=== PATIENT | female | born 1985 | race Caucasian/White ===

== ENCOUNTER → 2017-04-02 | Outpatient (CLI) | payer OTHER ==
--- NOTE | 2017-04-04 13:17 | US ---
EXAM DESCRIPTION: Breast,Bilateral: Ultrasound CLINICAL HISTORY: 31 yearsFemaleFAMILY HISTORY. Mother with breast cancer. Bilateral palpable lumps. COMPARISON: None. TECHNIQUE: Transcutaneous scanning of the bilateral breasts utilizing two-dimensional and Doppler modes. Bilateral 4 quadrant scanning technique. Scanning performed by the hvac residential service technician and Dr. Maravilla. FINDINGS: At the 300 clock position of the right breast 1 cm from the nipple, a hypoechoic nodule is present measuring approximately 5.4 x 3.9 mm. Well-defined villasenor with predominantly posterior acoustic enhancement. Surrounded by fibroglandular tissues. Parallel orientation. No overlying skin abnormality or calcifications. Not vascular. At the 1100 clock position of the right breast, 3 cm from the nipple, is a oval-shaped hypoechoic lesion with lobulated borders. Surrounded by fibroglandular tissues. Minimal posterior acoustic enhancement, non-vascular. Parallel orientation, 7.1 x 5.2 mm. At the 1230 clock position of the right breast 4 cm from the nipple is a oval-shaped hypoechoic mass with central echogenicity. Well-defined villasenor, 6.8 x 4.7 mm. Parallel orientation with no definitive posterior acoustic features. Nonvascular. In the left breast at 1200 clock position retroareolar location, is a hypoechoic mass just anterior to the muscle layer. Parallel orientation with no definitive posterior acoustic features. Nonvascular, dimensions 8.2 x 3.4 mm. Minimal central echogenicity, surrounded by fibroglandular tissues. At the 600 clock position of the left breast 3 cm from the nipple and near the muscular layer, is a 7.3 mm hypoechoic mass with central echogenicity. Relatively well-defined villasenor. Parallel orientation with no definitive posterior acoustic features. Not vascular. Surrounded by fibroglandular tissues. In the left breast at the 800 clock position, 2 cm from the nipple is a hypoechoic mass with smooth villasenor and minimal echogenicity. 7.0 x 7.3 mm dimensions, parallel orientation, and posterior acoustic enhancement. Near the chest wall and surrounded by fibroglandular tissues, nonvascular. In the left breast at the 900 clock position 3 cm from the nipple is a mostly hypoechoic mass with relatively well-defined villasenor measuring 8.8 x 5.3 mm. Predominantly posterior acoustic enhancement and parallel orientation. Comminuted the chest wall and surrounded by fibroglandular tissues. In the left breast at the 600 clock position 2 cm from the nipple is a mostly hypoechoic mass with relatively well-defined villasenor. Parallel orientation, posterior acoustic enhancement, and surrounded by fibroglandular tissues, abutting the chest wall. Not vascular, 6.5 mm long axis. IMPRESSION: BI-RADS CATEGORY: 0 - INCOMPLETE- Need additional imaging evaluation. FOLLOW-UP: Recall for additional imaging: Bilateral 3-D tomosynthesis diagnostic mammographic imaging.. The FINDINGS and the follow-up plan were reviewed in person with the patient after the examination. Written communication explaining the IMPRESSION and follow-up will be mailed to the patient and referring care provider. Electronically signed by: Forrest Maravilla MD 04/04/2017 1:16 PM BLOCKING MACHINE TENDER
== END ==
LOC: US 15:32
PROVIDERS: ATTEND Obstetrics & Gynecology
DX: N63.10 Unspecified lump in the right breast, unspecified quadrant (principal); N63.20 Unspecified lump in the left breast, unspecified quadrant; Z80.3 Family history of malignant neoplasm of breast

== ENCOUNTER → 2017-04-11 | Outpatient (CLI) | payer OTHER ==
--- NOTE | 2017-04-11 16:20 | MAM ---
EXAM DESCRIPTION: 3D Diagnostic, Bilateral: Digital Mammography CLINICAL HISTORY: 31 [id number] mother with breast cancer. Bilateral palpable lumps. Bilateral nodules on ultrasound breast examination. COMPARISON: Bilateral screening breast ultrasound examination 04/02/2017. Bilateral 2-D digital diagnostic mammographic examination 04/19/2015. TECHNIQUE: Bilateral CC LM MLO projection full-field images, 3-D tomosynthesis digital mammographic technique. Also bilateral synthesized CC MLO LM full-field images. CAD not utilized. FINDINGS: The breast parenchymal density pattern is: Extremely dense breast tissue, which lowers the sensitivity of mammography. No skin thickening or nipple retraction small focal calcification in the right axilla. Scattered solitary microcalcifications at the 900 clock position of the left breast. No focal, stellate mass or density, focal asymmetry , and no suspicious microcalcifications bilaterally. Stable mammograms compared to prior study, taking into account differences in mammographic technique IMPRESSION: BI-RADS CATEGORY: 3 - PROBABLY BENIGN. Management: Short interval (6-month) follow-up diagnostic mammography and continued six-month surveillance, bilateral targeted breast ultrasound. The FINDINGS and the follow-up plan were reviewed in person with the patient after the examination. Written communication explaining the IMPRESSION and follow-up will be mailed to the patient and referring care provider. Electronically signed by: Forrest Maravilla MD 04/11/2017 4:19 PM [facility]
== END | disposition home or self-care (01) ==
LOC: MAMMO 11:04
PROVIDERS: ATTEND Obstetrics & Gynecology
DX: R92.8 Other abnormal and inconclusive findings on diagnostic imaging of breast (principal)
CPT/HCPCS: G0204; G0279

== ENCOUNTER → 2017-11-05 | Outpatient (CLI) | payer OTHER ==
--- NOTE | 2017-11-07 11:53 | MAM ---
EXAM DESCRIPTION: 3D Diagnostic, Bilateral: Digital Mammography CLINICAL HISTORY: 31 yearsFemale6 MONTH FOLLOW UP mother with breast cancer age 29. Premenopausal. Childbirth. Uses control. Bilateral breast increasing in size which may be due to change of control. COMPARISON: Bilateral 3-D diagnostic mammographic examination 04/11/2017. Prior bilateral targeted breast ultrasound the same visit. Reports from prior examinations also reviewed. TECHNIQUE: Bilateral CC LM MLO projection full-field images, 3-D tomosynthesis digital mammographic technique. Anterior bilateral 2-D magnification LM and CC projections anterior breast. CAD not utilized. FINDINGS: The breast parenchymal density pattern is: Extremely dense breast tissue, which lowers the sensitivity of mammography. No skin thickening or nipple retraction bilateral solitary microcalcifications. ULTRASOUND: Scanning 300 clock position of the right breast 1 cm from the nipple. Oval-shaped hypoechoic object, circumscribed margins, central echogenicity and parallel orientation posterior enhancement features. 10 x 7 mm and nonvascular. Consistent with a lymph node. 1100 clock position 3 cm from the breast: Hypoechoic versus anechoic object, lobulated borders 7.2 x 7.2 mm with posterior enhancement features and nonvascular. 1230 clock position right breast 4 cm from the nipple. Circumscribed, hypoechoic rim and echogenic center measuring 6.8 x 4.9 mm and nonvascular, consistent with a lymph node. No large calcifications, and no skin changes, no parenchymal edema. Scanning 1200 clock position retroareolar left breast: Hypoechoic nodule with circumscribed margins, parallel orientation, posterior enhancement features measuring 3.4 x 4.1 mm. 600 clock position left breast 3 cm from the nipple. 6 x 5.4 mm hypoechoic solid nodule with circumscribed margins.. Parallel orientation and posterior enhancement features with no vascularity. 800 clock position left breast 2 cm from the nipple. Hypoechoic solid mass with circumscribed borders parallel orientation, posterior acoustic features and nonvascular. 900 clock position left breast, 3 cm from the nipple. Hypoechoic solid nodule with circumscribed margins 7.7 x 5.2 cm. Parallel orientation with posterior enhancement features. Nonvascular. 600 clock position left breast, 2 cm from the nipple. Hypoechoic peripheral nodule with central echogenicity and circumscribed margins. Parallel orientation and posterior enhancement features. Nonvascular, most likely a lymph node. No cysts, parenchymal edema, abnormal vascularity, large calcifications, or overlying skin changes in the left breast. IMPRESSION: BI-RADS CATEGORY: 3 - PROBABLY BENIGN. Management: Short interval (6-month) digital mammogram and targeted ultrasound follow-up. Consider breast MRI without and with gadolinium IV contrast. Would be more sensitive examination, especially with a strong family history and dense breasts, no radiation, and can be done yearly.. The FINDINGS and the FOLLOW-UP plan were reviewed in person with the patient after the examination. Written communication explaining the IMPRESSION and FOLLOW-UP will be mailed to the patient and referring care provider. Electronically signed by: Forrest Maravilla MD 11/07/2017 11:52 AM CDT
== END ==
LOC: MAMMO 09:58
PROVIDERS: ATTEND Obstetrics & Gynecology
DX: R92.8 Other abnormal and inconclusive findings on diagnostic imaging of breast (principal)
CPT/HCPCS: 77066; G0279

== ENCOUNTER → 2017-11-06 | Outpatient (CLI) | payer OTHER ==
--- NOTE | 2017-11-07 11:53 | US ---
EXAM DESCRIPTION: Breast,Bilateral: Ultrasound CLINICAL HISTORY: 31 yearsFemale6 MONTH FOLLOW UP COMPARISON: Digital 3-D diagnostic mammography bilateral breasts on this visit. Targeted Bilateral breast ultrasound April 02, 2017 TECHNIQUE: Transcutaneous scanning of the bilateral breast utilizing [place]-scale and Doppler modes. Scanning performed by the project designer and Dr. Maravilla. FINDINGS: Scanning 300 clock position of the right breast 1 cm from the nipple. Oval-shaped hypoechoic object, circumscribed margins, central echogenicity and parallel orientation posterior enhancement features. 10 x 7 mm and nonvascular. Consistent with a lymph node. 1100 clock position 3 cm from the breast: Hypoechoic versus anechoic object, lobulated borders 7.2 x 7.2 mm with posterior enhancement features and nonvascular. 1230 clock position right breast 4 cm from the nipple. Circumscribed, hypoechoic rim and echogenic center measuring 6.8 x 4.9 mm and nonvascular, consistent with a lymph node. No large calcifications, and no skin changes, no parenchymal edema. Scanning 1200 clock position retroareolar left breast: Hypoechoic nodule with circumscribed margins, parallel orientation, posterior enhancement features measuring 3.4 x 4.1 mm. 600 clock position left breast 3 cm from the nipple. 6 x 5.4 mm hypoechoic solid nodule with circumscribed margins.. Parallel orientation and posterior enhancement features with no vascularity. 800 clock position left breast 2 cm from the nipple. Hypoechoic solid mass with circumscribed borders parallel orientation, posterior acoustic features and nonvascular. 900 clock position left breast, 3 cm from the nipple. Hypoechoic solid nodule with circumscribed margins 7.7 x 5.2 cm. Parallel orientation with posterior enhancement features. Nonvascular. 600 clock position left breast, 2 cm from the nipple. Hypoechoic peripheral nodule with central echogenicity and circumscribed margins. Parallel orientation and posterior enhancement features. Nonvascular, most likely a lymph node. No cysts, parenchymal edema, abnormal vascularity, large calcifications, or overlying skin changes in the left breast. IMPRESSION: 1. Bi-Rads Category 3: Probably Benign Findings. 2. Please refer to bilateral 3-D tomosynthesis diagnostic mammographic examination and report on this visit. The FINDINGS and the FOLLOW-UP plan were reviewed in person with the patient after the examination. Written communication explaining the IMPRESSION and FOLLOW-UP will be mailed to the patient and referring care provider. Electronically signed by: Forrest Maravilla MD 11/07/2017 11:52 AM CDT
== END ==
LOC: US 13:00
PROVIDERS: ATTEND Emergency Medicine
DX: R92.8 Other abnormal and inconclusive findings on diagnostic imaging of breast (principal)

== ENCOUNTER → 2019-09-02 | Outpatient (CLI) | payer OTHER ==
--- NOTE | 2019-09-03 09:16 | MRI ---
EXAM DESCRIPTION: Cervical Spine: MRI. CLINICAL HISTORY: 33 years Female RADICULOPATHY CERVICAL REGION COMPARISON: None. TECHNIQUE: Multiplanar, high-field MRI, multiple sequences, non-contrast Cervical spine. FINDINGS: C4-5: Trace anterolisthesis. Normal signal in the disc with disc space preserved. Mild hypertrophic arthrosis right facet joint. Left facet joint and posterior ligaments negative. Canal and neural foramina are patent. C5-C6: Normal signal in the disc with minimal disc space loss. Trace posterior bulging. Canal elements are negative, with no neural foraminal narrowing. Normal signal in the remaining discs with no bulging. Disc spaces preserved. Canal and neural foramina are patent. Facet joints negative. Spinal alignment otherwise unremarkable. No cord compression or cord edema. Atlantoaxial joint negative. Base of the cerebellar tonsils is at the level of the foramen magnum. Paravertebral soft tissues unremarkable. Vertebral bodies are not compressed at any level. Otherwise normal marrow signal in the remaining vertebral bodies and the posterior elements. IMPRESSION: 1. Trace anterolisthesis at C4-C5. Minimal hypertrophic arthrosis right facet joint. Minimal right neural foraminal narrowing but no neural foraminal or canal stenosis. 2. Normal signal in the C5-C6 disc with disc space preserved. Trace posterior bulging. Canal and neural foramina are patent. Electronically signed by: Forrest Maravilla MD 09/03/2019 9:15 AM CDT
== END ==
LOC: MRI 09:53
PROVIDERS: ATTEND Emergency Medicine
DX: M54.12 Radiculopathy, cervical region (principal); M43.12 Spondylolisthesis, cervical region; M46.92 Unspecified inflammatory spondylopathy, cervical region; M50.922 Unspecified cervical disc disorder at C5-C6 level